=== PATIENT | female | born 1980 | race Caucasian/White ===

== ENCOUNTER → 2018-02-06 | Outpatient (CLI) | payer OTHER ==
--- NOTE | 2018-02-01 19:47 | HHI.HP ---
HPI Chief Complaint Planned cerclage Travel History International Travel<30 Days: No Contact w/Intl Traveler<30Days: No History of Present Illness HPI Pre op H&P done in advance w/o pre op visit, will update any addition to HPI at time of her presentation for surgery. Patient is a 38 yo who will be 13w0d by 7 weeks US (TREASURE 08/15/18) at the time of schedule procedure. Here with her Mc for schedule history indicated Finley cerclage based on history of cervical insufficiency. is complicated by AMA, Crohn's disease, history of LTCS x1, MDD, Tobacco use. History Past Medical History Narrative Medical 1. Tobacco use 2. Crohns disease 3. KALYANI / MDD 4. MTHFR heterozygote (no personal history of VTE) Obstetric History Obstetric History 1. 2011: term LTCS for arrest of dilation and NFHTs, IOL for suspected LGA. Op note suggested minimal adhesions of fundus to abd wall. - During the : At 18 weeks had a ileocolectomy due to Crohn's flare that may have sparked her cervical insufficiency, she required rescue cerclage at around 20 weeks per her report, was then on modified bedrest and 17 hydroxyprogesterone. 2. SAB: at 10 weeks 3. SAB: at 6 weeks. Past Surgical History Narrative Surgical - - 06/2012 - Cholecystectomy - 12/2011 - IIeocolectomy - 05/2000 & 12/2011 Family History Narrative Family History MGM -PNH , Fibromyalgia , COPD Social History Narrative Social History Smokes 1 PPD, [employer] HX: LMP: 11/02/2017 STDs: patient denies Alcohol Use: No Tobacco Use: Yes (Smoked 1 PPD) Substance Abuse: No Allergies-Medications Comments Remicade Narrative Medication 1. PNV 2. Stelara 3. Prednisone 4. Nicotine patch 5. Fluoxetine 10mg qd 6. ASA 81mg (pt electively takes this b/c of history of MTHFR heterozygosity) Review of Systems Except as stated in HPI: all other systems reviewed are Neg General / Constitutional: No: Fever, Weight Gain, Chills, Other Eyes: No: Diploplia, Blurred Vision, Visual changes, Pain, Photophobia HENT: No: Headaches, Vertigo, Lightheadedness Cardiovascular: No: Irregular Rhythm, Chest Pain or Discomfort, Palpitations, Tachycardia, Syncope, Varicosities, Edema, Cyanosis Respiratory: No: Cough, Short of Breath, Other Gastrointestinal: No: Nausea, Vomiting, Diarrhea Genitourinary: No: Decreased Urinary Output, Oliguria Musculoskeletal: No: Limited ROM, Weakness, Cramping, Edema, Pain Skin: No Rash, No Itching, No Dryness, No Lumps, No Change in Pigmentation, No Change in Nails, No Alopecia, No Lesions Neurologic: No: Weakness, Dizziness, Syncope, Focal Abnormalities, Coordination Problem, Headache, Slurred Speech, Seizures Psychiatric: No: Depression, Suicidal Ideations, Homicidal Ideation Endocrine: No: Heat Intolerance, Cold Intolerance, Polydipsia, Polyuria, Other Physical Exam Will update vital signs at time of her presentation Narrative Below exam findings based on encounter on 01/17/18. GENERAL: Well-nourished, well-developed patient. SKIN: Warm and dry. HEAD: Normocephalic and atraumatic. EYES: No scleral icterus. No injection or drainage. ENT: No nasal drainage noted. Mucous membranes pink. Airway patent. NECK: Supple, trachea midline. No JVD. CARDIOVASCULAR: Regular rate and rhythm without murmurs, gallops, or rubs. RESPIRATORY: Breath sounds equal bilaterally. No accessory muscle use. ABDOMEN/GI: Abdomen soft, non-tender, bowel sounds present, no rebound, no guarding, : deferred EXTREMITIES: No cyanosis or edema. BACK: Nontender without obvious deformity. No CVA tenderness. NEUROLOGICAL: Awake and alert. Motor and sensory grossly within normal limits. Normal speech. FHT's: Will [facility]rini VTE Risk Assessment Caprini VTE Risk Assessment: Mod/High Risk (score >= 2) Caprini Risk Assessment Model Point Value = 1 Point Value = 2 Point Value = 3 Point Value = 5 Age 41-60 Minor surgery BMI > 25 kg/m2 Swollen legs Varicose veins or History of unexplained or recurrent spontaneous Oral contraceptives or hormone replacement Sepsis (< 1 month) Serious lung disease, including pneumonia (< 1 month) Abnormal pulmonary function Acute myocardial infarction Congestive heart failure (< 1 month) History of inflammatory bowel disease Medical patient at bed rest Age 61-74 Arthroscopic surgery Major open surgery (> 45 min) Laparoscopic surgery (> 45 min) Malignancy Confined to bed (> 72 hours) Immobilizing plaster cast Central venous access Age >= 75 History of VTE Family history of VTE Factor V Leiden Prothrombin 50303T Lupus anticoagulant Anticardiolipin antibodies Elevated serum homocysteine Heparin-induced thrombocytopenia Other congenital or acquired thrombophilia Stroke (< 1 month) Elective arthroplasty Hip, pelvis, or leg fracture Acute spinal cord injury (< 1 month) Prophylaxis Regimen Total Risk Factor Score Risk Level Prophylaxis Regimen 0-1 Low Early ambulation 2 Moderate Order ONE of the following: *Sequential Compression Device (SCD) *Heparin 5000 units SQ BID 3-4 Higher Order ONE of the following medications: *Heparin 5000 units SQ TID *Enoxaparin/Lovenox 40 mg SQ daily (WT < 150 kg, CrCl > 30 mL/min) *Enoxaparin/Lovenox 30 mg SQ daily (WT < 150 kg, CrCl > 10-29 mL/min) *Enoxaparin/Lovenox 30 mg SQ BID (WT < 150 kg, CrCl > 30 mL/min) AND/OR *Sequential Compression Device (SCD) 5 or more Highest Order ONE of the following medications: *Heparin 5000 units SQ TID (Preferred with Epidurals) *Enoxaparin/Lovenox 40 mg SQ daily (WT < 150 kg, CrCl > 30 mL/min) *Enoxaparin/Lovenox 30 mg SQ daily (WT < 150 kg, CrCl > 10-29 mL/min) *Enoxaparin/Lovenox 30 mg SQ BID (WT < 150 kg, CrCl > 30 mL/min) AND *Sequential Compression Device (SCD) Data Data Vital Signs Reviewed: Yes Labs labs: on 01/09/18 - A positive, Antibody negative, Rubella immune, VZV immune, NG/CT negative, Urine ctx neg, UDS neg, RPR non reactive, HIV negative, Hep C and Hep B negative , TSH 3.280. - WBC 9.2, Hb 11.5, Plt 276 Assessment/Plan Assessment and Plan Will update any changes or updates to A/P at time of her procedure. 37 yo at 13w0d by 7w US (TREASURE 08/15/18) here for scheduled cerclage. 1. : will document heart tones prior to procedure. - Rh pos. 2. History of cervical insufficiency: Discussed with patient options based on her below history and we have elected and agreed upon a history indicated finley cerclage on 02/07/18, pt signed consents then. Plan for d/c home after procedure. - Required rescue cerclage at around 20 weeks per her report, delivered at term was on modified bedrest and 17 hydroxyprogesterone. To note during the at 18 weeks she had a ileocolectomy due to Crohn's flare that may have sparked this event. - Unsure if she would benefit from progesterone this , will see what MFM recs - Suggested serial cervical lengths following cerclage. 3. History of LTCS 1: In 2011, for arrest of dilation and NRFHTs, IOL for suspected LGA, Op note suggested minimal adhesions of fundus to abd wall. - Discussed possibility of TOLAC and if spontaneous labor, will continue discussion future encounters. 4. Crohn's disease: Seems uncontrolled, recent flare, tapering on Prednisone, new medication Stelara started recently, will see MFM, discussed risk of certain meds and informed her of risks of Prednisone such as IUGR, and possible cleft lip/palate with prednisone use. 5. Depression: Continue fluoxetine medication. 6. MTHFR heterozygote: Patient may continue her aspirin, rec her to take folic acid if she desires, discussed limited evidence for benefit or any implications on . 7. Advanced maternal age: Pt given NIPS today. 8. tobacco use: continues to try and quit, smokes around a pack a day, has tried Wellbutrin, Chantix, patches in the past, she seems motivated to quit, trying patches at this time. Waqar Cintron MD Feb 01, 2018 19:47
[~2018-02-06] MED LIST: FLUO10TA PO; PRED20 PO; SE-NTAB3 PO
== END ==
LOC: HPND 08:45
PROVIDERS: ATTEND Obstetrics & Gynecology
DX: O09.521 Supervision of elderly multigravida, first trimester (principal); O99.321 Drug use complicating pregnancy, first trimester; O99.331 Smoking (tobacco) complicating pregnancy, first trimester; O99.111 Other diseases of the blood and blood-forming organs and certain disorders involving the immune mechanism complicating pregnancy, first trimester
CPT/HCPCS: 36415; 76813

== ENCOUNTER → 2018-02-07 | Day surgery (SDC) | payer OTHER ==
[~2018-02-07] VITALS: Ht 165.1 cm; Wt 70.8 kg
[~2018-02-07] MED LIST changes: +BUPIVACAINE PF 0.75% DEX-WATER INJ 2 ML AMP ONE; +CHLORHEXIDINE GLUCONATE 2 % 1 PACK (2 CLOTHS) TOPICAL PRN; +DO NOT ADM ANY ANTICOAGULANT DRUGS PRN; +HYDROmorphone HCL PF 1 MG/ML VIAL IVP PRN; +INSULIN HUMAN REGULAR 1,000 UNITS/10 ML VIAL SQ PRN; +LACTATED RINGER'S 1000 ML IV PRN; +LIDOCAINE HCL 1% 50 ML VIAL ONE; +LIDOCAINE HCL 1% PF 5 ML SYRINGE OTHER ONE; +LORazepam 0.5 MG TAB PO PRN; +METOPROLOL TARTRATE 25 MG TAB PO PRN; +ONDANSETRON HCL 4 MG/2 ML VIAL IVP PRN; +PILL SPLITTER OTHER PRN; +POVIDONE IODINE 5% (ANTISEPSIS KIT) 4 APPLICATIONS EACH NARE PRN; +PROPOFOL 200 MG/20 ML AMP IV ONE; +ROPIVACAINE 0.5% PF INJ 30 ML VIAL ONE; +SODIUM CHLORID 0.9% 500 ML IV PRN; +SODIUM CHLORIDE 0.9% FLUSH 10 ML FLUSH IV FLUSH PRN; +SODIUM CHLORIDE 0.9% FLUSH 10 ML FLUSH IV FLUSH SCH; +diphenhydrAMINE HCL 25 MG CAP PO PRN; +oxyCODONE/ACETAMINOPHEN 5 MG/325 MG TAB PO PRN
[2018-02-07 08:01] LABS: AUTOMATED NEUTROPHIL # 6.3 TH/MM3 (1.8-7.7); BASOPHIL % 0.5 % (0.0-2.0); EOSINOPHIL % 0.5 % (0.0-4.0); HEMATOCRIT 32.4 % (35.0-46.0); HEMOGLOBIN 10.9 GM/DL (11.6-15.3); LYMPH % 17.9 % (9.0-44.0); LYMPHOCYTE # 1.5 TH/MM3 (1.0-4.8); MEAN CELL VOLUME 82.9 FL (80.0-100.0); MEAN CORPUSCULAR HEMOGLOBIN 27.9 PG (27.0-34.0); MEAN CORPUSCULAR HGB CONC 33.6 % (32.0-36.0); MEAN PLATELET VOLUME 7.3 FL (7.0-11.0); MONO % 6.2 % (0.0-8.0); MONOCYTE # 0.5 TH/MM3 (0-0.9); NEUT % 74.9 % (16.0-70.0); PLATELET COUNT 247 TH/MM3 (150-450); RED CELL DISTRIBUTION WIDTH 17.8 % (11.6-17.2); WHITE BLOOD COUNT 8.4 TH/MM3 (4.0-11.0)
--- NOTE | 2018-02-07 08:06 | PD.OP ---
Operative Report Date of Surgery: February 07, 2018 Preoperative Diagnosis: 1. IUP at 13 weeks and 0 days 2. History of cervical insufficiency 3. History of LTCS x1 4. AMA 5. Crohn's disease 6. Anxiety 7. Tobacco use Postoperative Diagnosis: 1. Same as above s/p cerclage Procedure: 1. Bray cerclage Surgeon: Waqar Cintron Primary Mill Roller(s): [facility] OR staff Resident Surgeon: none Operation and Findings: Findings: 1. Normal external female genitalia vagina and cervix, and digitally external os 1cm, internal os closed. Anesthesia: Spinal Specimen: None Estimated blood loss: Minimal Fluid replacement: 800 cc lactated Ringer's Urine output: 25 cc clear Via Oswald preoperatively DVT prophylaxis: Sequential compression devices throughout the case Antibiotics: None required Counts: correct x2 at the end of the case. Time out done: yes Disposition: Stable to PACU then home after meeting criteria and normal heart tones documented by nursing staff. Indications: 38 yo at 13w0d by 7 weeks US (TREASURE 08/15/18) who was seen in the outpatient setting and counsled for a cerclage based on her obstetrical history, she has seen MFM and had normal appearing US, she had yet to perform any aneuploidy screening but plans to soon, please see H&P and consents for further details. Description of procedure: The patient was taken to the operating room and spinal anesthesia was found to be adequate, she was positioned in lithotomy position in candycane stirrups, the perineum and vagina were prepped and draped in sterile fashion, the bladder was drained, a weighted speculum was placed posterior and a george retractor anteriorly, a ring forcep was used to grasp the anterior and posterior lip of the cervix, using a #1 Ethilon black suture on the CTX needle a Bray cerclage was placed passing from 12 to 9, 9 to 6, 6to 3 and 3 back to 12 o'clock as close to the bladder and rectal reflection as safely possible. It was tied firmly with 8 knots and then an air knot above these to help with removal in the future. All sites were hemostatic, the patient tolerated the procedure well. Waqar Cintron MD February 07, 2018 08:06
[2018-02-07 13:10] VITALS: BP 119/57; PULSE 90; RESP 20; TEMP 98.8; O2SAT 99
== END | disposition home or self-care (01) ==
LOC: HSDC 07:16
PROVIDERS: ATTEND Obstetrics & Gynecology
DX: O34.31 Maternal care for cervical incompetence, first trimester (principal); O99.341 Other mental disorders complicating pregnancy, first trimester; F41.9 Anxiety disorder, unspecified; O99.611 Diseases of the digestive system complicating pregnancy, first trimester; K50.90 Crohn's disease, unspecified, without complications; Z3A.13 13 weeks gestation of pregnancy
CPT/HCPCS: 85025; J2795

== ENCOUNTER 2018-02-25 13:20 | Inpatient (IN) | END 2018-02-27 15:55 | disposition home or self-care (01) | DRG 781 | DX: O99.612 Diseases of the digestive system complicating pregnancy, second trimester (principal); O26.872 Cervical shortening, second trimester; K50.912 Crohn's disease, unspecified, with intestinal obstruction; O09.292 Supervision of pregnancy with other poor reproductive or obstetric history, second trimester; O23.42 Unspecified infection of urinary tract in pregnancy, second trimester; O99.332 Smoking (tobacco) complicating pregnancy, second trimester; O09.892 Supervision of other high risk pregnancies, second trimester; O09.522 Supervision of elderly multigravida, second trimester; O99.342 Other mental disorders complicating pregnancy, second trimester; O34.211 Maternal care for low transverse scar from previous cesarean delivery; B96.20 Unspecified Escherichia coli [E. coli] as the cause of diseases classified elsewhere; F17.210 Nicotine dependence, cigarettes, uncomplicated; F32.9 Major depressive disorder, single episode, unspecified; F41.9 Anxiety disorder, unspecified; Z98.890 Other specified postprocedural states; Z90.49 Acquired absence of other specified parts of digestive tract; Z88.8 Allergy status to other drugs, medicaments and biological substances; Z3A.16 16 weeks gestation of pregnancy ==

== ENCOUNTER → 2018-03-13 | Outpatient (CLI) | payer OTHER ==
[~2018-03-13] MED LIST changes: +AMOX875T2 PO; -BUPIVACAINE PF 0.75% DEX-WATER INJ 2 ML AMP ONE; -CHLORHEXIDINE GLUCONATE 2 % 1 PACK (2 CLOTHS) TOPICAL PRN; -DO NOT ADM ANY ANTICOAGULANT DRUGS PRN; -HYDROmorphone HCL PF 1 MG/ML VIAL IVP PRN; -INSULIN HUMAN REGULAR 1,000 UNITS/10 ML VIAL SQ PRN; -LACTATED RINGER'S 1000 ML IV PRN; -LIDOCAINE HCL 1% 50 ML VIAL ONE; -LIDOCAINE HCL 1% PF 5 ML SYRINGE OTHER ONE; -LORazepam 0.5 MG TAB PO PRN; -METOPROLOL TARTRATE 25 MG TAB PO PRN; -ONDANSETRON HCL 4 MG/2 ML VIAL IVP PRN; -PILL SPLITTER OTHER PRN; -POVIDONE IODINE 5% (ANTISEPSIS KIT) 4 APPLICATIONS EACH NARE PRN; +PRED10 PO; -PROPOFOL 200 MG/20 ML AMP IV ONE; -ROPIVACAINE 0.5% PF INJ 30 ML VIAL ONE; -SODIUM CHLORID 0.9% 500 ML IV PRN; -SODIUM CHLORIDE 0.9% FLUSH 10 ML FLUSH IV FLUSH PRN; -SODIUM CHLORIDE 0.9% FLUSH 10 ML FLUSH IV FLUSH SCH; -diphenhydrAMINE HCL 25 MG CAP PO PRN; -oxyCODONE/ACETAMINOPHEN 5 MG/325 MG TAB PO PRN
== END ==
LOC: HPND 07:20
PROVIDERS: ATTEND Obstetrics & Gynecology
DX: O09.522 Supervision of elderly multigravida, second trimester (principal); O99.612 Diseases of the digestive system complicating pregnancy, second trimester; O99.332 Smoking (tobacco) complicating pregnancy, second trimester; O99.322 Drug use complicating pregnancy, second trimester; O99.342 Other mental disorders complicating pregnancy, second trimester; O44.22 Partial placenta previa NOS or without hemorrhage, second trimester
CPT/HCPCS: 76811; 76817

== ENCOUNTER → 2018-03-28 | Outpatient (CLI) | payer OTHER | LOC: HPND 07:47 | PROVIDERS: ATTEND Obstetrics & Gynecology | DX: O09.523 Supervision of elderly multigravida, third trimester (principal); O44.43 Low lying placenta NOS or without hemorrhage, third trimester; O99.613 Diseases of the digestive system complicating pregnancy, third trimester; K50.00 Crohn's disease of small intestine without complications; O99.343 Other mental disorders complicating pregnancy, third trimester | CPT/HCPCS: 76815; 76817 ==

== ENCOUNTER 2018-08-08 05:41 | Inpatient (IN) ==
[2018-08-08] MEDS ORDERED: Morphine Sulfate PF Inj 5 MG/10 ML Ampul ONE (06:45)
--- NOTE | 2018-08-08 06:55 | P.OP ---
Surgeon: Waqar Cintron MD Operation and Findings: Preoperative diagnosis: 1. Intrauterine at 39 weeks and 0 days 2. History of desiring repeat 3. History of cervical insufficiency 4. Crohn's disease 5. Depression and anxiety 6. Advanced maternal age 7. Tobacco use Postop diagnosis 1. Same as above status post delivery Procedure 1. Repeat low transverse section Surgeon Dr. Waqar Cintron Billiard Table Repairer: [place] labor and delivery scrub staff Findings: 1. Viable male at 8:09 AM, Apgars 8 and 9, weight 3805 g. 2. Intact placenta with three-vessel cord at 8:11 AM 3. Normal uterus, bilateral fallopian tubes and ovaries. Minimal filmy adhesions of the bladder to the lower uterine segment. Otherwise no intra- abdominal adhesions appreciated. 4. Dense scar at the level of the fascia and the rectus muscles. Anesthesia: Spinal with Astramorph Specimen: Placenta to disposal Estimated blood loss: 500 cc Fluid replacement: 1200 cc lactated Ringer's and Pitocin Urine output: 100 cc clear urine Via Oswald DVT prophylaxis: SCDs throughout the case Antibiotics: 2 g Ancef preoperatively Counts: correct x2 Time out done: yes Disposition: Stable to PACU then Indications: 38-year-old who presented for a scheduled repeat please see H&P and consent for further details. Description of procedure: The patient was taken to the operating room and after spinal anesthesia was performed she was positioned and supine position with arms out in a left lateral tilt, the abdomen was prepped and draped in sterile fashion, a Pfannenstiel incision was made and carried down sharply through her prior scar to the fascia which was nicked on either side of the midline, extended bilaterally, and the fascia was elevated superiorly and inferiorly and the rectus muscles were sharply dissected off the overlying fascia. The peritoneum was entered digitally and retracted laterally. A bladder flap was developed with Metzenbaum scissors at the lower uterine segment, the hysterotomy was made in the lower uterine segment with a scalpel in a curvilinear fashion, it was extended cephalad-caudad manner, I inserted my hand into the hysterotomy and the head was elevated to the hysterotomy and with fundal pressure was delivered. With gentle downward and upward guidance the anterior and posterior shoulder was delivered, followed by the torso and lower extremities with ease, the infant had spontaneous cry the cord was clamped and cut, the was handed off to nursing staff after delayed cord clamping was allowed. Pitocin was bolused and with uterine massage and cord traction the placenta was delivered, uterus was cleared of clot and debris, the uterus was exteriorized and the hysterotomy was closed with 1 layer using 0 locking delayed absorbable braided suture, and 2 [id number]'s of 0 Vicryl were used for hemostasis on the left edge and in the midline. The abdomen and hysterotomy were irrigated, inspected, and found to be hemostatic. The fascia was closed from left to right with 0 running delayed absorbable suture. The subcutaneous tissue was irrigated , inspected, hemostasis was appreciated, the space was closed with running 2-0 delayed absorbable monofilament suture. The skin was closed with 3-0 delayed absorbable monofilament suture in a subcuticular fashion and then a dressing was applied and the patient tolerated procedure well was transferred to PACU.
[2018-08-08] MEDS ORDERED: ceFAZolin 2 GM IV; once IV.SIG ONE (07:15)
[2018-08-08] MEDS ORDERED: Citric Acid/Sodium Citrate Liq 30 ML UDC PO SCH (07:15)
[2018-08-08 07:24] LABS: Baso % (Auto) 0.5 % (0.0-2.0); Eos # (Auto) 0.1 th/mm3 (0.0-0.4); Eos % (Auto) 1.2 % (0.0-4.0); Hematocrit 32.5 % (35.0-46.0); Hemoglobin 10.9 gm/dL (11.6-15.3); Lymph % (Auto) 26.8 % (9.0-44.0); Mean Corpuscular HGB Conc 33.7 % (32.0-36.0); Mean Corpuscular Hemoglobin 30.2 pg (27.0-34.0); Mean Corpuscular Volume 89.8 fL (80.0-100.0); Mean Platelet Volume 10.1 fL (7.0-11.0); Mono # (Auto) 0.5 th/mm3 (0.0-0.9); Mono % (Auto) 6.7 % (0.0-8.0); Neut # (Auto) 4.8 th/mm3 (1.8-7.7); Neut % (Auto) 64.8 % (16.0-70.0); Platelet Count 196 th/mm3 (150-450); Red Blood Count 3.61 mil/mm3 (4.00-5.30); Red Cell Distribution Width 14.3 % (11.6-17.2); White Blood Count 7.4 th/mm3 (4.0-11.0)
[2018-08-08] MEDS ORDERED: Phenylephrine/NS 1000 MCG/10ML Syringe IV.PUSH ONE (07:37)
[2018-08-08] MEDS ORDERED: Citric Acid/Sodium Citrate Liq 30 ML UDC ONE (07:43)
[2018-08-08 07:51] LABS: Bilirubin,Urine Negative (Negative); Clarity,Urine Cloudy (Clear); Color,Urine Yellow (Yellw/Straw); Glucose,Urine (UA) Negative (Negative); Leukocyte Esterase,Urine Moderate (Negative); Nitrite,Urine Negative (Negative)
--- NOTE | 2018-08-08 07:59 | MH ---
cc: Waqar Cintron MD DATE OF ADMISSION: 08/08/2018 CHIEF COMPLAINT: Scheduled repeat . HISTORY OF PRESENT ILLNESS: This patient is a 38-year-old, G4, P1-0-2-1, who will be at 39 weeks and 0 days with an estimated due date of 08/15/2018 by a 7-week ultrasound, presenting for a scheduled repeat . has been complicated by Crohn disease, history of cervical insufficiency with a history indicated cerclage placed this , and removed at 36 weeks; history of low transverse for nonreassuring heart tones, advanced maternal age with normal first trimester screening and anatomy, tobacco use, a anxiety and depression, low-lying placenta, which has resolved; intracardiac echogenic foci with a normal echo. MEDICATIONS: Stelara for her Crohn disease, Prozac 10 mg daily, iron daily. ALLERGIES: REMICADE. PAST MEDICAL HISTORY: 1. Crohn disease. 2. Depression. 3. Anxiety. 4. Tobacco use. 5. MTHFR deficiency. No history of VTE. SURGICAL HISTORY: 2011 2011 cholecystectomy 1999 and 2011 ileocolectomy. GYNECOLOGIC HISTORY: LMP 11/02/2017. OBSTETRICAL HISTORY: 1. G4, P1-0-2-1, spontaneous x2 around 10 and 6 weeks. 2. 06/08/2012, 39 weeks, primary low transverse for failed induction, arrest at 4 cm, had a rescue cerclage at 20 weeks due to cervical insufficiency, and was on 17-hydroxyprogesterone, also had ileocolostomy for a Crohn flare and small bowel obstruction at 18 weeks. SOCIAL HISTORY: Tobacco use. Denies alcohol or drug use. FAMILY HISTORY: No pertinent positive family history. PHYSICAL EXAMINATION: Based on encounter from 07/25/2018. VITAL SIGNS: Weight 191 pounds, blood pressure 110/60. GENERAL: Alert and oriented x3, resting comfortably in bed, in no acute distress. PULMONARY: Lungs are clear to auscultation bilaterally. No wheezes, crackles or rhonchi. CARDIOVASCULAR: Regular rate and rhythm. No murmurs or gallops. ABDOMEN: Soft, gravid, nontender. GENITOURINARY: Deferred. EXTREMITIES: No clubbing, cyanosis or edema. ASSESSMENT AND PLAN: This patient is a 38-year-old, 4, para 1-0-2-1 who will be at 39 weeks and 0 days for a scheduled repeat . 1. Intrauterine . Will be placed on monitoring at time of her admission. -She is status post Tdap and flu vaccine. -Estimated weight on 07/17/2018 is 2902 grams in the 71st percentile with a posterior placenta. She has been getting weekly testing. 2. History of , desiring repeat. The patient counseled on risks and benefits of . Please see consent for further details. 3. History of cervical insufficiency, history of indicated cerclage throughout this , was removed at 36 weeks in the office. 4. Crohn disease. Has been fairly well controlled this . Had some flares at the beginning and admission for partial SBO. Patient has been on prednisone on and off but as of today has not taken in 2 months, no need for stress dose steroid. 5. Depression and anxiety. Continue home Prozac. Had a normal echo. 6. MTHFR heterozygote. Has been on folic acid. No history of VTE. no need for anticoagulation 7. Advanced maternal age, normal first trimester screen, normal anatomy. 8. Tobacco use. Has been counseled on cessation throughout the . 9. Low-lying placenta. This has resolved. 10. Echogenic cardiac foci, normal echo, and first trimester ultrasound this . MD MELIA Bingham/lazaro , 02:44 PM , 02:55 PM JIMMIE
[2018-08-08 08:05] LABS: Specific Gravity,Urine 1.021 (1.002-1.035)
[2018-08-08 08:06] LABS: Bacteria,Urine Few /hpf; Mucus,Urine Few /lpf (Occasional)
[2018-08-08 08:26] LABS: Amphetamine Urine With Conf Neg (Neg); Benzodiazepine Urine With Conf Neg (Neg)
[2018-08-08] MEDS ORDERED: Zolpidem Tartrate 5 MG Tablet PO PRN (08:47)
[2018-08-08] MEDS ORDERED: Oxytocin 30 Units/500ml Premix 30 UNITS/500 ML BAG IV.SIG ONE (08:47)
[2018-08-08] MEDS ORDERED: Morphine Sulfate Inj 8 MG/ML Vial IV.PUSH PRN (08:47)
[2018-08-08] MEDS ORDERED: Acetaminophen 325 MG Tablet PO PRN (08:47)
[2018-08-08] MEDS ORDERED: fentaNYL Citrate Inj 100 MCG/2 ML Ampul ONE (08:55)
[2018-08-08] MEDS ORDERED: Ketorolac Inj 30 MG/ML (IVP) Vial IV.PUSH ONE (09:00)
[2018-08-08] MEDS ORDERED: Ketorolac Inj 30 MG/ML (IVP) Vial ONE (09:10)
[2018-08-08] MEDS ORDERED: Morphine Sulfate Inj 2 MG/ML Vial IV.PUSH ONE (11:15)
[2018-08-08] MEDS ORDERED: Oxytocin 30 Units/500ml Premix 30 UNITS/500 ML BAG IV.SIG PRN (13:47)
[2018-08-08] MEDS: Ketorolac Inj 30 MG/ML (IVP) Vial IV.PUSH SCH ×2 (15:31→21:40)
[2018-08-08] MEDS ORDERED: Morphine Inj 4 MG/ML Vial IV.PUSH PRN (16:30)
[2018-08-08] MEDS: Senna/Docusate Sodium 8.6/50 MG Tablet PO PRN (21:53)
[2018-08-09] MEDS: Ketorolac Inj 30 MG/ML (IVP) Vial IV.PUSH SCH ×3 (03:22→09:00)
[2018-08-09 06:10] LABS: Baso % (Auto) 0.6 % (0.0-2.0); Eos # (Auto) 0.1 th/mm3 (0.0-0.4); Eos % (Auto) 1.3 % (0.0-4.0); Hematocrit 27.2 % (35.0-46.0); Hemoglobin 9.5 gm/dL (11.6-15.3); Lymph # (Auto) 1.7 th/mm3 (1.0-4.8); Lymph % (Auto) 26.5 % (9.0-44.0); Mean Corpuscular HGB Conc 34.7 % (32.0-36.0); Mean Corpuscular Volume 89.4 fL (80.0-100.0); Mean Platelet Volume 9.7 fL (7.0-11.0); Mono # (Auto) 0.5 th/mm3 (0.0-0.9); Mono % (Auto) 8.4 % (0.0-8.0); Neut # (Auto) 3.9 th/mm3 (1.8-7.7); Neut % (Auto) 63.2 % (16.0-70.0); Platelet Count 163 th/mm3 (150-450); Red Blood Count 3.05 mil/mm3 (4.00-5.30); Red Cell Distribution Width 14.1 % (11.6-17.2); White Blood Count 6.2 th/mm3 (4.0-11.0)
--- NOTE | 2018-08-09 08:08 | P.PNOB ---
Subjective Post op day: 1 Interval history: Doing well, pain controlled, ambulating without difficulty, voiding spontaneously, tolerating regular diet, no nausea or vomiting, vaginal bleeding less than menses. Objective Vital Signs/I&O: Vital Signs 08/08/18 08:50 08/08/18 09:01 08/08/18 09:16 Temperature 97.6 F Pulse Rate 99 H 88 84 Respiratory Rate 17 19 Blood Pressure 109/55 L 123/74 119/74 08/08/18 09:30 08/08/18 09:31 08/08/18 09:47 Temperature 97.6 F Pulse Rate 83 84 Respiratory Rate 20 18 Blood Pressure 114/73 107/68 08/08/18 10:05 08/08/18 20:00 08/09/18 00:00 Temperature 98.5 F 98.2 F 97.8 F Pulse Rate 95 H 80 81 Respiratory Rate 20 18 18 Blood Pressure 119/84 121/68 109/65 08/09/18 04:00 Temperature 98.0 F Pulse Rate 79 Respiratory Rate 18 Blood Pressure 121/60 Intake & Output 08/08/18 08/09/18 08/09/18 18:59 06:59 18:59 Weight 83.915 kg Result Diagrams: 08/09/18 05:35 Objective Remarks: GENERAL: Well-nourished, well-developed patient. CARDIOVASCULAR: Regular rate and rhythm without murmurs, gallops, or rubs. RESPIRATORY: Breath sounds equal bilaterally. No accessory muscle use. ABDOMEN/GI: Abdomen soft, non-tender, bowel sounds present. Incision: Did not visualize, breast-feeding her Fundus: Firm, non-tender at umbilicus. GENITOURINARY: Light to moderate bleeding. EXTREMITIES: No cyanosis or edema, non-tender, without signs of DVT. Medications and IVs: Active Medications Acetaminophen (Tylenol) 650 mg PO Q6H PRN PRN Reason: PAIN SCALE 1 TO 2 Diphtheria/Pertussis/Tetanus Vacc (Boostrix Vaccine Inj) 0.5 ml IM .ONCE ONE Stop: 08/09/18 16:01 Lactated Ringer's (Lr 1000 Ml Inj) 1,000 mls @ 100 mls/hr IV.CONT .Q10H MARCEL Stop: 08/09/18 09:46 Last Admin: 08/08/18 23:27 Dose: Not Given Oxytocin (Pitocin 30 Units/Ns 500 Ml Premix) 30 units in 500 mls @ 100 mls/hr IV.SIG UNSCH PRN PRN Reason: Heavy bleeding Ibuprofen (Motrin) 800 mg PO Q8H PRN PRN Reason: cramping Ketorolac Tromethamine (Toradol Inj) 15 mg IV.PUSH Q6H MARCEL Stop: 08/09/18 14:59 Last Admin: 08/09/18 03:22 Dose: 15 mg Measles/Mumps/Rubella Vaccine Live (M-M-R Ii Vaccine Inj) 0.5 ml SQ .ONCE ONE Stop: 08/09/18 16:01 Morphine Sulfate (Morphine Inj) 5 mg IV.PUSH Q4H PRN PRN Reason: BREAKTHROUGH PAIN Last Admin: 08/08/18 16:40 Dose: 5 mg Ondansetron HCl (Zofran Odt) 4 mg PO Q4H PRN PRN Reason: NAUSEA Ondansetron HCl (Zofran Inj) 4 mg IV.PUSH Q6H PRN PRN Reason: NAUSEA OR VOMITING Oxycodone/Acetaminophen (Percocet 5/325 Mg) 1 tab PO Q4H PRN PRN Reason: PAIN SCALE 3 TO 5 Last Admin: 08/09/18 01:55 Dose: 1 tab Oxycodone/Acetaminophen (Percocet 5/325 Mg) 2 tab PO Q4H PRN PRN Reason: PAIN SCALE 6 TO 10 Senna/Docusate Sodium (Yessy-Colace) 2 tab PO Q12H PRN PRN Reason: CONSTIPATION Last Admin: 08/08/18 21:53 Dose: 2 tab Sodium Chloride (Ns Flush) 2 ml IV.FLUSH BID [facility] Last Admin: 08/08/18 21:30 Dose: Not Given Sodium Chloride (Ns Flush) 2 ml IV.FLUSH PRN PRN PRN Reason: FLUSH AFTER USING IV ACCESS Last Admin: 08/09/18 03:23 Dose: 2 ml Zolpidem Tartrate (Ambien) 5 mg PO HS PRN PRN Reason: INSOMNIA Assessment and Plan - Plan 38-year-old status post repeat low transverse at 39 weeks and 0 days. 1. Postoperative day #1: Afebrile, vital signs stable, a.m. hemoglobin appropriate, continue routine postoperative and care, anticipate discharged home the next 48 hours. Discussed precautions expectations and follow-up. -Male , desires circumcision, brought money but was unaware that needed the pay in the office, will circumcised tomorrow. 2.. Crohn disease. Has been fairly well controlled this with Stelara. Had some flares at the beginning and admission for partial SBO. Patient has been on prednisone on and off but as of today has not taken in 2 months, no need for stress dose steroids. 3. Depression and anxiety. Continue home Prozac. 4. Tobacco use. Has been counseled on cessation throughout the .
[2018-08-09] MEDS: Senna/Docusate Sodium 8.6/50 MG Tablet PO PRN ×2 (08:31→21:43)
[2018-08-09] MEDS ORDERED: Diphtheria/Tetanus/Pertussis Vaccine Inj 0.5 ML Syringe IM ONE (16:00)
[2018-08-09] MEDS ORDERED: Measles/Mumps/Rubella Vaccine Inj 0.5 ML Vial SQ ONE (16:00)
[2018-08-10] MEDS: Senna/Docusate Sodium 8.6/50 MG Tablet PO PRN (09:12)
--- NOTE | 2018-08-10 10:19 | P.PNOB ---
Subjective Post op day: 2 Interval history: pain controlled doing well with nursing no complaints and desires discharge Objective Vital Signs/I&O: Vital Signs 08/09/18 20:00 08/10/18 08:00 Temperature 98.1 F 97.9 F Pulse Rate 72 87 Respiratory Rate 18 20 Blood Pressure 122/63 116/69 Result Diagrams: 08/09/18 05:35 Objective Remarks: GENERAL: Well-nourished, well-developed patient. CARDIOVASCULAR: Regular rate and rhythm without murmurs, gallops, or rubs. RESPIRATORY: Breath sounds equal bilaterally. No accessory muscle use. ABDOMEN/GI: Abdomen soft, non-tender, bowel sounds present. Incision: Clean, dry and intact. Fundus: Firm, non-tender at umbilicus. GENITOURINARY: Light to moderate bleeding. EXTREMITIES: No cyanosis or edema, non-tender, without signs of DVT. Medications and IVs: Active Medications Acetaminophen (Tylenol) 650 mg PO Q6H PRN PRN Reason: PAIN SCALE 1 TO 2 Oxytocin (Pitocin 30 Units/Ns 500 Ml Premix) 30 units in 500 mls @ 100 mls/hr IV.SIG UNSCH PRN PRN Reason: Heavy bleeding Ibuprofen (Motrin) 800 mg PO Q8H PRN PRN Reason: cramping Last Admin: 08/10/18 09:13 Dose: 800 mg Morphine Sulfate (Morphine Inj) 5 mg IV.PUSH Q4H PRN PRN Reason: BREAKTHROUGH PAIN Last Admin: 08/08/18 16:40 Dose: 5 mg Ondansetron HCl (Zofran Odt) 4 mg PO Q4H PRN PRN Reason: NAUSEA Ondansetron HCl (Zofran Inj) 4 mg IV.PUSH Q6H PRN PRN Reason: NAUSEA OR VOMITING Oxycodone/Acetaminophen (Percocet 5/325 Mg) 1 tab PO Q4H PRN PRN Reason: PAIN SCALE 3 TO 5 Last Admin: 08/10/18 01:16 Dose: 1 tab Oxycodone/Acetaminophen (Percocet 5/325 Mg) 2 tab PO Q4H PRN PRN Reason: PAIN SCALE 6 TO 10 Last Admin: 08/10/18 09:13 Dose: 2 tab Senna/Docusate Sodium (Yessy-Colace) 2 tab PO Q12H PRN PRN Reason: CONSTIPATION Last Admin: 08/09/18 21:43 Dose: 1 tab Sodium Chloride (Ns Flush) 2 ml IV.FLUSH BID MARCEL Last Admin: 08/09/18 22:20 Dose: 2 ml Sodium Chloride (Ns Flush) 2 ml IV.FLUSH PRN PRN PRN Reason: FLUSH AFTER USING IV ACCESS Last Admin: 08/09/18 03:23 Dose: 2 ml Zolpidem Tartrate (Ambien) 5 mg PO HS PRN PRN Reason: INSOMNIA Assessment and Plan - Plan 38-year-old status post repeat low transverse at 39 weeks and 0 days. 1. Postoperative day #1: Afebrile, vital signs stable, a.m. hemoglobin appropriate, continue routine postoperative and care, anticipate discharged home the next 48 hours. Discussed precautions expectations and follow-up. -Male , desires circumcision, brought money but was unaware that needed the pay in the office, will circumcised tomorrow. 2.. Crohn disease. Has been fairly well controlled this with Anatoliy. Had some flares at the beginning and admission for partial SBO. Patient has been on prednisone on and off but as of today has not taken in 2 months, no need for stress dose steroids. 3. Depression and anxiety. Continue home Prozac. 4. Tobacco use. Has been counseled on cessation throughout the . POD 2 doing well and ready for discharge counseled on what to watch for return to office one week or prn
== END 2018-08-10 13:13 | disposition home or self-care (01) ==
LOC: H2E 05:41 → H1EA 10:29
PROVIDERS: ADMIT Obstetrics & Gynecology; ATTEND Obstetrics & Gynecology